=== PATIENT | female | born 1935 | race Caucasian/White ===

== ENCOUNTER 2016-11-01 12:35 | Outpatient (CLI) | payer MEDICARE, BC ==
--- NOTE | 2016-11-01 14:11 | MMO ---
BILATERAL SCREENING MAMMOGRAM: DATE: 11/01/16 HISTORY: 81-year-old female for screening mammography. COMPARISON: 10/27/15, 09/03/14, 09/02/13, 08/20/12. FINDINGS: Bilateral MLO and CC views of the breasts show predominantly fatty replaced breast parenchyma. Benig n-appearing calcifications are seen in the right breast. There is no evidence of suspicious mass, escobar spicious cluster of microcalcifications, or area of architectural distortion. Interpretation of this mammogram was performed with the assistance of computer-aided detection. IMPRESSION: BIRADS 2: Benign Finding(s) Annual screening mammography is recommended. POS: [facility]
== END 2016-11-01 12:36 | disposition home or self-care (01) ==
LOC: SCSMAMMO 12:35
PROVIDERS: ATTEND Obstetrics & Gynecology
DX: Z12.31 Encounter for screening mammogram for malignant neoplasm of breast (principal)
CPT/HCPCS: 77067; G0202

== ENCOUNTER 2017-10-29 09:17 | Emergency (ER) | payer MEDICARE, BC ==
--- NOTE | 2017-10-29 12:32 | RAD ---
THREE VIEWS OF THE LEFT WRIST: HISTORY: Left wrist pain and swelling. FINDINGS: Three views of the left wrist show no evidence of acute fracture or dislocation. No significant join t space narrowing is seen in the radiocarpal joint. There is moderate 1st CMC joint space narrowing and osteophyte formation. IMPRESSION: 1. No evidence of acute osseous abnormality. 2. Moderate left thumb osteoarthritis. POS: [facility]
--- NOTE | 2017-10-29 12:38 | RAD ---
THREE VIEWS LEFT HAND: COMPARISON: None. HISTORY: Left hand pain and swelling. FINDINGS: Three views left hand show no evidence of acute fracture or dislocation. There is joint space narrow ing and central erosions involving the interphalangeal joints of multiple fingers. 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 There is moderate joint space narrowing and osteophyte for mation in the 1st CMC joint. 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 POS: [facility]
== END 2017-10-29 11:15 | disposition home or self-care (01) ==
LOC: SCSER 09:17
DX: M19.032 Primary osteoarthritis, left wrist (principal); M19.031 Primary osteoarthritis, right wrist; Z79.899 Other long term (current) drug therapy

== ENCOUNTER 2017-11-06 14:18 | Outpatient (CLI) | payer MEDICARE, BC ==
--- NOTE | 2017-11-06 16:26 | MMO ---
BILATERAL SCREENING MAMMOGRAM: COMPARISON: 10/27/15, 10/22/16, and 08/24/14. HISTORY: An 82-year-old female. Routine screening mammography. TECHNIQUE: CC and MLO views of both breasts are submitted for interpretation. This patient's mammogram is revie wed with the assistance of computer-aided detection. FINDINGS: Breasts are predominantly fatty replaced. Bilaterally, no suspicious dominant mass, architectural di stortion, or suspicious calcification. Benign-appearing calcifications in the right breast. IMPRESSION: BIRADS 2: Benign Finding(s) RECOMMENDATION: Annual mammogram. POS: [facility]
== END 2017-11-06 14:19 | disposition home or self-care (01) ==
LOC: SCSMAMMO 14:18
PROVIDERS: ATTEND Obstetrics & Gynecology
DX: Z12.31 Encounter for screening mammogram for malignant neoplasm of breast (principal)
CPT/HCPCS: 77067

== ENCOUNTER 2024-03-14 09:49 | Outpatient (CLI) | payer MEDICARE, BC | END 2024-03-14 09:50 | disposition home or self-care (01) | LOC: SCSRAD 09:49 | PROVIDERS: ATTEND Family Medicine | DX: R05.3 Chronic cough (principal); R59.0 Localized enlarged lymph nodes | CPT/HCPCS: 71046 ==